=== PATIENT | male | born 1945 | race Caucasian/White ===

== ENCOUNTER 2025-04-09 06:22 | Day surgery (SDC) | payer MEDICARE, OTHER, SELFPAY ==
--- NOTE | 2024-09-17 09:43 | PTCARENOTE ---
Patient states has been battling bronchitis for a couple weeks. Finished a z-pack, still on steroids (they will be done in 2 days). Lingering cough, but says improved and that he went back to urgent care this week to be evaluated because he was
worried about the surgery. Using asmanex and benzonatate for cough. Kira in office made aware.
[2025-04-09 09:29] VITALS: BMI 32.3
--- NOTE | 2025-04-09 09:29 | HP.FOC2 ---
Focused History & Physical
Chief Complaint
HPI:
Chief Complaint: Umbilical hernia
HPI / Indication for Planned Procedure: Patient is an 79-year-old male presenting for repair of symptomatic umbilical hernia. The hernias been present for many years but it has recently enlarged in size. Physical examination confirmed the presence
of a reducible umbilical hernia. After discussions regarding treatment options the patient wished to pursue operative correction.
Relevant Past Medical History: Other (Asthma, hypertension, hyperlipidemia, iron deficiency anemia, cataracts)
Relevant Social History: Negative
Relevant Family History: Negative
Relevant Past Surgical History: Positive for (Removal benign spinal tumor, cataracts,)
Review of Systems
Review of Pertinent Systems: All Systems Negative
Medication
See Medication form for detailed medications: Yes
Medication List (including Herbals & OTC):
lovastatin 40 mg tablet 80 mg PO HS 03/27/20
acetaminophen 500 mg tablet 500 mg PO DAILY 09/17/24
diphenhydramine 25 mg-acetaminophen 500 mg tablet (Tylenol PM Extra Strength) 2 tab PO HS 09/17/24
docusate sodium 100 mg capsule (Colace) 200 mg PO NOON 09/17/24
fluticasone propionate 50 mcg/actuation nasal spray,suspension 1 spray intranasal DAILY PRN allergies 09/17/24
losartan 100 mg-hydrochlorothiazide 25 mg tablet 1 tab PO NOON 09/17/24
mometasone 220 mcg/actuation(120 doses)breath activated powder inhaler (Asmanex Twisthaler) 1 inh inhalation PRN PRN allergies 09/17/24
polyethylene glycol 3350 17 gram oral powder packet (Miralax) 17 g PO PRN PRN y 04/06/25
Medications Reviewed: Yes
Allergies and Reactions
Patient has Allergies: Yes
Noted Allergies and Reactions:
Allergy/AdvReac Type Severity Reaction Status Date / Time
pollen extracts Allergy seasonal Verified 04/09/25 09:24
allergies
Pertinent Physical Exam
All Other Systems: Negative
Head/Neck: Normal
Lungs: Normal
Heart: Normal
Abdomen: Other (Reducible umbilical hernia, 2 cm fascial defect)
Extremities: Normal
Neurological: Normal
Diagnosis / Assessment
79-year-old male presenting for scheduled operative correction symptomatic reducible umbilical hernia
Plan / Procedure
Open umbilical hernia repair with mesh
Anesthesia/Sedation to be done by Anesthesia Provider: Yes
[2025-04-09 09:30] VITALS: BP 164/86
--- NOTE | 2025-04-09 09:32 | W.SUR.PREOP ---
Pre-Operative Surgical Note
-
I have examined this patient prior to the performance of the scheduled procedure.
The patient's condition is unchanged from the time of the current History and
Physical and the patient is able to undergo the scheduled procedure.
[2025-04-09] MEDS: TYLENOL 1000 MG PO (09:34)
[2025-04-09] MEDS: NORMOSOL-R/PLASMALYTE-A 1000 IV (09:44)
[2025-04-09 09:55] VITALS: BMI 32.3
--- NOTE | 2025-04-09 11:04 | W.IMMPOSTOP ---
Addendum entered and electronically signed by Gallito Galan MD 04/09/25 11:15:
#[id number]
Original Note:
Surgical Immed Post Op Note
-
Primary Surgeon: Gallito Galan MD
Assisting Surgeon: Fina Harris PA-C
Pre-op Diagnosis: Umbilical hernia
Post-op Diagnosis: Umbilical hernia; 2.5 cm
Procedure Performed: Open umbilical hernia repair with mesh; Ventralex ST 6.4 cm round
Anesthesia Type: MAC +0.25% Marcaine with epi/1% lidocaine
Specimen / Cultures: None
Estimated Blood Loss: 6 mL
Complications: None immediate
Operative Findings: Umbilical hernia, 2.5 cm fascial defect. Omental adhesions to the hernia sac released. Hernia sac closed with 2-0 Vicryl. Underlay preperitoneal mesh repair, Ventralex ST 6.4 cm round. Closure of fascial defect with 0 PDS
STRATAFIX symmetric.
The assistance of Fina Harris PA-C was required due to the complexity of the procedure. During the procedure Fina Harris PA-C assisted with tissue retraction for adequate exposure and closure of the incision site.
[2025-04-09 11:08] VITALS: BP 141/82
[2025-04-09 11:15] VITALS: BP 147/79
[2025-04-09 11:30] VITALS: BP 153/76
[2025-04-09] MEDS: ROXICODONE 5 MG PO (12:00)
== END 2025-04-09 12:00 | disposition home or self-care (01) ==
LOC: SDS 06:22
PROVIDERS: ATTENDING PHYSICIAN Surgery
DX: K42.9 Umbilical hernia without obstruction or gangrene (principal)
CPT/HCPCS: 49591; C1781